=== PATIENT | male | born 1970 | race Caucasian/White ===

== ENCOUNTER 2017-02-01 11:05 | Outpatient (RCR) | payer BC | END 2017-05-02 | disposition home or self-care (01) | LOC: CARD 11:05 | PROVIDERS: ATTEND Internal Medicine | DX: R07.9 Chest pain, unspecified (principal); R00.2 Palpitations | CPT/HCPCS: 93225; 93226 ==

== ENCOUNTER → 2017-02-01 | Outpatient (CLI) | payer BC | LOC: CARD 11:04 | PROVIDERS: ATTEND Internal Medicine | DX: R07.9 Chest pain, unspecified (principal) | CPT/HCPCS: 93005 ==

== ENCOUNTER → 2017-02-26 | Outpatient (CLI) | payer BC ==
[~2017-02-26] MED LIST: CATHETER FLUSH 10 ML SYR IV PRN
[2017-02-26 08:34] VITALS: BP 113/70
--- NOTE | 2017-02-26 17:54 | STRESS TEST ---
DATE OF SERVICE: 02/26/2017 PROCEDURE: Resting and post exercise technetium-99m Tetrofosmin SPECT CT imaging. ORDERING PHYSICIAN: Elizabeth Still DO. PRIMARY PHYSICIAN: Elizabeth Still DO. CLINICAL DIAGNOSIS: Chest pain. Baseline images were carried out after injection of 10.4 mCi technetium-99m Tetrofosmin. Subsequently, exercise was carried out on a treadmill and this is reported separately by Dr. Still. After the patient had attained 85% of maximum predicted heart, 32.8 mCi of technetium-99m Tetrofosmin were injected and the exercise was continued for another approximately 45 seconds. Review of images at rest and following stress does not indicate any significant perfusion defects consistent with significant myocardial ischemia or infarction. Gated images show normal global left ventricular systolic function with normal regional wall motion. Left ventricular ejection fraction is calculated to be 64%. Left ventricular end diastolic volume is 95 mL. TID is absent (0.96). CONCLUSIONS: 1. No evidence of significant myocardial ischemia or infarction on myocardial perfusion imaging. 2. Normal regional wall motion. 3. Normal global left ventricular systolic function with a calculated ejection fraction of 64%. Job ID: [id number] DocumentID: [id number] Dictated Date: 02/26/2017 10:19:11 Locomotive Supervisor Date: 02/26/2017 11:55:29 Dictated By: KINZA BARDALES MD, MA, FACP, FACC,
== END ==
LOC: CARD 06:43
PROVIDERS: ATTEND Internal Medicine
DX: R07.9 Chest pain, unspecified (principal)
CPT/HCPCS: 78452; 93017

== ENCOUNTER → 2017-03-03 | Outpatient (CLI) | payer BC | LOC: CARD 13:25 | PROVIDERS: ATTEND Internal Medicine | DX: R07.9 Chest pain, unspecified (principal) | CPT/HCPCS: 93306 ==